=== PATIENT | male | born 1990 | race Caucasian/White ===

== ENCOUNTER 2025-05-28 13:23 | Emergency (ER) | payer OTHER, SELFPAY ==
[2025-05-28 13:27] VITALS: BP 144/88; PULSE 62; RESP 18; TEMP 36.1; O2SAT 95; BMI 36.6
--- NOTE | 2025-05-28 13:35 | DI.CT.S_ITS ---
PROCEDURE: CT ABDOMEN PELVIS W CON
[2025-05-28 14:28] LABS: Add Manual Diff / Slide Review NO; Hematocrit 47.4 % (41-53); Hemoglobin 16.1 g/dL (13.5-17.5); Lymphocytes Absolute Auto 1900 /uL (1100-4500); Mean Corpuscular HGB Conc 34.0 % (30-36); Mean Corpuscular Hemoglobin 29.3 PG (26-34); Mean Corpuscular Volume 86.4 fL (80-100); Platelet Count 210 X10^3/uL (150-400)
--- NOTE | 2025-05-28 14:30 | ED_ITS ---
HPI - Back Pain/Injury
--- NOTE | 2025-05-28 14:30 | ED.BACK ---
HPI - Back Pain/Injury <Jailene Campos PA-C - Last Filed: 05/28/25 16:32> General Chief Complaint: Back Pain/Injury Stated Complaint: Lower back pain , Time Seen by Provider: 05/28/25 13:35 Source: patient History of Present Illness HPI Narrative: 34-year-old male presents to the ED with 1 day of left flank pain that radiates down into the left hip. Patient endorses nausea and 3 episodes of vomiting. Patient also endorses feeling clammy. Denies fever, chest pain, shortness of breath, abdominal pain, dysuria, lightheadedness, dizziness, syncope. No prior history of nephrolithiasis. Patient does endorse a history of cholecystitis, is status post cholecystectomy. Related Data Allergies Allergy/AdvReac Type Severity Reaction Status Date / Time No Known Drug Allergies Allergy Verified 05/28/25 13:27 Review of Systems <Jailene Campos PA-C - Last Filed: 05/28/25 16:32> Constitutional Constitutional: Reports chills, Denies fatigue, Denies fever(s), Denies frequent falls, Denies lethargy and Denies weakness Comments: clammy Eyes Eyes: Denies change in vision, Denies eye discharge, Denies irritation and Denies loss of vision ENT Ears, Nose, Mouth, and Throat: Denies change in voice, Denies dizziness, Denies neck pain, Denies sore throat and Denies throat swelling Cardiovascular Cardiovascular: Denies chest pain, Denies irregular heart rhythm, Denies lightheadedness, Denies palpitations, Denies dyspnea, Denies dyspnea on exertion and Denies orthopnea Respiratory Respiratory: Denies cough, Denies dyspnea, Denies dyspnea on exertion and Denies wheezing Gastrointestinal Gastrointestinal: Denies abdominal pain, Denies change in bowel habits, Denies diarrhea, Reports nausea and Reports vomiting Comments: Left-sided flank pain wrapping into the left groin Musculoskeletal Musculoskeletal: Denies neck pain and Denies numbness Integumentary/Breasts Skin/Breast: Denies pruritus, Denies erythema, Denies rash and Denies wounds Neurologic Neurologic: Denies behavioral changes, Denies confusion, Denies dizziness, Denies frequent falls, Denies loss of vision, Denies numbness and Denies weakness Psychiatric Psychiatric: Denies anxiety, Denies behavioral changes, Denies confusion, Denies depression, Denies homicidal ideation and Denies suicidal ideation Endocrine Endocrine: Denies fatigue, Denies flushing and Denies palpitations Hematologic/Lymphatic Hematologic/Lymphatic: Denies easy bruising Allergic/Immunologic Allergic/Immunologic: Denies urticaria, Denies throat swelling and Denies wheezing Patient History <Jailene Campos PA-C - Last Filed: 05/28/25 16:32> Social History Smoking Status: Never smoker Smoking Status: Never smoker Exam <Jailene Campos PA-C - Last Filed: 05/28/25 16:32> Narrative Exam Narrative: Const General:?cooperative, healthy appearing and comfortable HENMT Head:?normal to inspection Ears:?hearing grossly normal bilaterally Nose:?external nose normal Face and sinus:?normal facial exam and sinuses nontender Mouth:?oral mucosae normal Throat:?posterior oropharynx normal Eyes General:?appearance normal, both eyes and all related structures Neck Neck:?normal visual inspection and no lymphadenopathy noted Resp Effort & Inspection:?normal respiratory effort Auscultation:?clear to auscultation bilaterally Cardio Rate:?regular rate Rhythm:?regular rhythm GI Left-sided CVA tenderness. Abdomen is soft, nondistended, nontender to palpation. Neuro General:?patient alert, patient awake and patient oriented x3 Initial Vital Signs Initial Vital Signs: Vital Signs Temperature 97.0 F L 05/28/25 13:27 Pulse Rate 62 05/28/25 13:27 Respiratory Rate 18 05/28/25 13:27 Blood Pressure 144/88 H 05/28/25 13:27 Pulse Oximetry 95 05/28/25 13:27 Oxygen Delivery Method Room Air 05/28/25 13:27 <Bree Dhillon DO - Last Filed: 05/29/25 08:19> Initial Vital Signs Initial Vital Signs: Vital Signs Temperature 97.0 F L 05/28/25 13:27 Pulse Rate 62 05/28/25 13:27 Respiratory Rate 18 05/28/25 13:27 Blood Pressure 144/88 H 05/28/25 13:27 Pulse Oximetry 95 05/28/25 13:27 Oxygen Delivery Method Room Air 05/28/25 13:27 Course <Jailene Campos PA-C - Last Filed: 05/28/25 16:32> Orders Ordered: Discontinued Medications Ketorolac Tromethamine (Ketorolac 30 Mg/Ml Vial) 15 mg IV NOW ONE Stop: 05/28/25 14:26 Last Admin: 05/28/25 14:49 Dose: 15 mg Documented By: DENNIS Vital Signs Vital signs: Vital Signs - 8 hr 05/28/25 13:27 Temperature 97.0 F L Pulse Rate 62 Respiratory Rate 18 Blood Pressure 144/88 H Pulse Oximetry 95 Oxygen Delivery Method Room Air <Bree Dhillon DO - Last Filed: 05/29/25 08:19> Orders Ordered: Discontinued Medications Ketorolac Tromethamine (Ketorolac 30 Mg/Ml Vial) 15 mg IV NOW ONE Stop: 05/28/25 14:26 Last Admin: 05/28/25 14:49 Dose: 15 mg Documented By: DENNIS Vital Signs Vital signs: Vital Signs - 8 hr 05/28/25 13:27 Temperature 97.0 F L Pulse Rate 62 Respiratory Rate 18 Blood Pressure 144/88 H Pulse Oximetry 95 Oxygen Delivery Method Room Air MDM - Back Pain/Injury <Jailene Campos PA-C - Last Filed: 05/28/25 16:32> Lab Data 05/28/25 14:10 05/28/25 14:10 Labs: Lab Results 05/28/25 05/28/25 Range/Units 14:10 15:28 WBC 9.5 (4.5-11.0) X10^3/uL RBC 5.49 (4.5-5.9) X10^6/uL Hgb 16.1 (13.5-17.5) g/dL Hct 47.4 (41-53) % MCV 86.4 (80-100) fL MCH 29.3 (26-34) PG MCHC 34.0 (30-36) % RDW 13.0 (11.6-14.8) % Plt Count 210 (150-400) X10^3/uL Neut % (Auto) 71.7 (50-75) % Lymph % (Auto) 20.6 L (25-40) % [place] % (Auto) 5.6 (3-14) % Eos % (Auto) 1.5 L (2-4) % Baso % (Auto) 0.6 (0-2) % Neut # (Auto) 6800 (6823-7349) /uL Lymph # (Auto) 1900 (0862-1963) /uL [place] # (Auto) 500 (0-900) /uL Eos # (Auto) 100 (0-450) /uL Baso # (Auto) 100 (0-100) /uL Sodium 140 (137-145) mmol/L Potassium 4.2 (3.4-5.1) mmol/L Chloride 103 (98-107) mmol/L Carbon Dioxide 28 (22-32) mmol/L BUN 19 (9-20) mg/dL Creatinine 0.95 (0.66-1.25) mg/dL Estimated GFR > 60 (>60) mL/min BUN/Creatinine Ratio 20.0 (6-22) Glucose 113 H (70-99) mg/dL Lactate 1.3 (0.7-2.1) mmol/L Calcium 9.1 (8.4-10.2) mg/dL Total Bilirubin 0.8 (0.2-1.3) mg/dL AST 41 (17-59) IU/L ALT 51 H (<50) IU/L Alkaline Phosphatase 54 (38-126) U/L Total Protein 8.2 (6.3-8.2) g/dL Albumin 4.8 (3.5-5.0) g/dL Globulin 3.4 (1.7-4.1) g/dL Albumin/Globulin Ratio 1.4 (1.0-2.8) Lipase 133 (23-300) U/L Urine Color Dark yellow Urine Appearance Sl cloudy Urine pH 6.5 (4.5-8.0) Ur Specific [place] <=1.005 (1.000-1.035) Urine Protein Negative (Negative) Urine Glucose (UA) Negative (Negative) g/dL Urine Ketones Negative (NEGATIVE) Urine Occult Blood 3+ H (Negative) Urine Nitrate Negative (Negative) Urine Bilirubin Negative (NEGATIVE) Urine Urobilinogen 0.2 (0.2) E.U./dL Ur Leukocyte Esterase Negative (NEGATIVE) Urine RBC 30-100/hpf H (0-5/HPF) Urine WBC 0-1/hpf (0-5/HPF) Ur Squamous Epith Cells 0-1 /hpf (0-5/HPF) Urine Bacteria Occasional (0-1) (None) Ur Culture Indicated? Cult not indicated Vol Urine Centrifuged 10ml (spun) MDM Narrative Medical decision making narrative: 34-year-old male presents to the ED with 1 day of left flank pain that radiates down into the left hip. Concern for nephrolithiasis versus UTI versus other intra-abdominal pathology versus other. Will obtain labs, UA, CT abdomen pelvis. Will give Toradol for pain. Will reassess. Labs within normal limits. UA without UTI. CT abdomen pelvis shows 2 small calculi measuring up to 3 mm in the left posterior bladder versus left ureterovesicular junction, likely passing or recently passed ureteral calculi. Trace left periureteral fat stranding. Patient endorses feeling much better and is pain-free. Discussed findings with patient. Recommend follow-up with urologist for subsequent stone prevention. Recommend taking ibuprofen if pain continues. ED return precautions discussed with patient. Patient verbalized understanding. Medical records reviewed: Yes <Bree Dhillon, DO - Last Filed: 05/29/25 08:19> Lab Data Labs: Lab Results 05/28/25 05/28/25 Range/Units 14:10 15:28 WBC 9.5 (4.5-11.0) X10^3/uL RBC 5.49 (4.5-5.9) X10^6/uL Hgb 16.1 (13.5-17.5) g/dL Hct 47.4 (41-53) % MCV 86.4 (80-100) fL MCH 29.3 (26-34) PG MCHC 34.0 (30-36) % RDW 13.0 (11.6-14.8) % Plt Count 210 (150-400) X10^3/uL Neut % (Auto) 71.7 (50-75) % Lymph % (Auto) 20.6 L (25-40) % [place] % (Auto) 5.6 (3-14) % Eos % (Auto) 1.5 L (2-4) % Baso % (Auto) 0.6 (0-2) % Neut # (Auto) 6800 (7532-3421) /uL Lymph # (Auto) 1900 (3180-6023) /uL [place] # (Auto) 500 (0-900) /uL Eos # (Auto) 100 (0-450) /uL Baso # (Auto) 100 (0-100) /uL Sodium 140 (137-145) mmol/L Potassium 4.2 (3.4-5.1) mmol/L Chloride 103 (98-107) mmol/L Carbon Dioxide 28 (22-32) mmol/L BUN 19 (9-20) mg/dL Creatinine 0.95 (0.66-1.25) mg/dL Estimated GFR > 60 (>60) mL/min BUN/Creatinine Ratio 20.0 (6-22) Glucose 113 H (70-99) mg/dL Lactate 1.3 (0.7-2.1) mmol/L Calcium 9.1 (8.4-10.2) mg/dL Total Bilirubin 0.8 (0.2-1.3) mg/dL AST 41 (17-59) IU/L ALT 51 H (<50) IU/L Alkaline Phosphatase 54 (38-126) U/L Total Protein 8.2 (6.3-8.2) g/dL Albumin 4.8 (3.5-5.0) g/dL Globulin 3.4 (1.7-4.1) g/dL Albumin/Globulin Ratio 1.4 (1.0-2.8) Lipase 133 (23-300) U/L Urine Color Dark yellow Urine Appearance Sl cloudy Urine pH 6.5 (4.5-8.0) Ur Specific [place] <=1.005 (1.000-1.035) Urine Protein Negative (Negative) Urine Glucose (UA) Negative (Negative) g/dL Urine Ketones Negative (NEGATIVE) Urine Occult Blood 3+ H (Negative) Urine Nitrate Negative (Negative) Urine Bilirubin Negative (NEGATIVE) Urine Urobilinogen 0.2 (0.2) E.U./dL Ur Leukocyte Esterase Negative (NEGATIVE) Urine RBC 30-100/hpf H (0-5/HPF) Urine WBC 0-1/hpf (0-5/HPF) Ur Squamous Epith Cells 0-1 /hpf (0-5/HPF) Urine Bacteria Occasional (0-1) (None) Ur Culture Indicated? Cult not indicated Vol Urine Centrifuged 10ml (spun) Discharge Plan Departure Patient Disposition: Home Clinical Impression: Kidney stone Instructions: DI for Kidney Stones Activity Restrictions/Additional Instructions: You were evaluated in the emergency department today for left-sided flank pain. The CT scan did show 2 kidney stones in the bladder that you might have just passed. There were no other stones visualized on CT. Your urine and labs were normal. At this time, no other intervention is indicated. If you continue to have any pain, you may take ibuprofen. You may also follow-up with a urologist regarding prevention of subsequent stones. Please return to the ED if you have worsening symptoms, uncontrolled pain. Stand Alone Forms: Patient Portal/API ED Sign-out <Bree Dhillon DO - Last Filed: 05/29/25 08:19> Cosign ED Attending Moe Attestation: I was immediately available in the department for consultation.
[2025-05-28 14:40] LABS: Lactate (Lactic Acid) 1.3 mmol/L (0.7-2.1)
[2025-05-28 14:41] LABS: Alanine Aminotransferase 51 IU/L (<50); Albumin 4.8 g/dL (3.5-5.0); Albumin Globulin Ratio 1.4 (1.0-2.8); Alkaline Phosphatase 54 U/L (38-126); Blood Urea Nitrogen 19 mg/dL (9-20); Calcium 9.1 mg/dL (8.4-10.2); Carbon Dioxide 28 mmol/L (22-32); Chloride 103 mmol/L (98-107); Estimated Glomerular Filt Rate > 60 mL/min (>60); Globulin 3.4 g/dL (1.7-4.1); Glucose 113 mg/dL (70-99); HEMOLYSIS < 15 (0-50); Lipase 133 U/L (23-300); Potassium 4.2 mmol/L (3.4-5.1); Sodium 140 mmol/L (137-145); Total Protein 8.2 g/dL (6.3-8.2)
[2025-05-28] MEDS: KETOROLAC 30 MG/ML VIAL 15 MG IV (14:49)
[2025-05-28 15:46] LABS: Appearance Urine UA SL CLOUDY; Bilirubin Urine UA NEGATIVE (NEGATIVE); Color Urine UA Dark Yellow; Glucose Urine UA NEGATIVE (Negative); Ketones Urine UA NEGATIVE (NEGATIVE); Leukocyte Esterase Urine UA NEGATIVE (NEGATIVE); Nitrite Urine UA NEGATIVE (Negative); Occult Blood Urine UA 3+ (Negative); Protein Urine UA NEGATIVE (Negative); Specific Gravity Urine UA <=1.005 (1.000-1.035); Urobilinogen Urine UA 0.2 E.U./dL (0.2); pH Urine UA 6.5 (4.5-8.0)
[2025-05-28 15:47] LABS: Culture Indicated Urine Cult Not Indicated
[2025-05-28 16:31] VITALS: BP 119/69; PULSE 75; RESP 18; O2SAT 95
== END 2025-05-28 16:33 | disposition home or self-care (01) ==
PROVIDERS: Emergency Provider Student in an Organized Health Care Education/Training Program
DX: N20.0 Calculus of kidney (principal); R11.2 Nausea with vomiting, unspecified
CPT/HCPCS: 74177; 80053; 81001; 83605; 83690; 85025; 96374; 99283; 99284; J1885